=== PATIENT | female | born 1970 | race Caucasian/White ===

== ENCOUNTER 2018-06-25 11:10 | Outpatient (REF) | payer MEDICAID, SELFPAY ==
[2018-06-25 14:35] LABS: ESR 7 MM/HR (0-20)
[2018-06-26 10:35] LABS: Rheumatoid Factor <8 IU/mL (<12.5)
[2018-06-26 11:50] LABS: IgA 78 mg/dL (85-499); Interpretation SEE COMMENTS; Lyme Ab w Rflx to Lyme Confirm Negative; Tissue Transglutaminase IgA <1.2 U/mL (<4.0)
[2018-06-26 14:10] LABS: ANA Interpretation Negative (NEGAT)
== END 2018-06-25 11:30 ==
LOC: NCHCN 11:10
PROVIDERS: PCP Nurse Practitioner; Visit Provider Nurse Practitioner
DX: K58.9 Irritable bowel syndrome, unspecified (principal); M25.50 Pain in unspecified joint
CPT/HCPCS: 82784; 83516; 85652; 86038; 86431; 86618

== ENCOUNTER 2018-10-20 01:12 | Outpatient (CLI) | payer MEDICAID, SELFPAY ==
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
== END 2018-10-20 01:32 ==
PROVIDERS: PCP Nurse Practitioner; Visit Provider Orthopaedic Surgery
DX: M25.511 Pain in right shoulder (principal); M75.101 Unspecified rotator cuff tear or rupture of right shoulder, not specified as traumatic; M19.011 Primary osteoarthritis, right shoulder; S40.012D Contusion of left shoulder, subsequent encounter
CPT/HCPCS: 73221

== ENCOUNTER 2018-11-04 09:53 | Outpatient (CLI) | payer MEDICAID, SELFPAY | END 2018-11-04 10:13 | PROVIDERS: PCP Nurse Practitioner; Visit Provider Student in an Organized Health Care Education/Training Program | DX: R55 Syncope and collapse (principal); E03.9 Hypothyroidism, unspecified | CPT/HCPCS: 93005; 93010 ==

== ENCOUNTER 2019-02-04 10:46 | Outpatient (REF) | payer MEDICAID, SELFPAY ==
[2019-02-04 19:20] LABS: TSH (W/Ref FT4) 1.65 uIU/mL (0.358-3.74)
== END 2019-02-04 11:06 ==
LOC: NCHCN 10:46
PROVIDERS: PCP Nurse Practitioner; Visit Provider Nurse Practitioner
DX: E03.9 Hypothyroidism, unspecified (principal)
CPT/HCPCS: 84443

== ENCOUNTER 2019-10-01 09:00 | Outpatient (CLI) | payer MEDICAID, SELFPAY ==
--- NOTE | 2019-10-01 09:13 | DI.RAD_ITS ---
EXAM: XR LUMBAR SPINE COMPLETE CLINICAL HISTORY: LOWER BACK PAIN M54.5 TECHNIQUE: COMPARISON: No exams were available for comparison FINDINGS: Six views were obtained. Note is made of disc space narrowing at L5-S1. Otherwise intervertebral di sc spaces appear fairly well maintained. Mild hypertrophic changes seen involving the endplates and facet joints throughout the lumbar region. No evidence of spondylolysis or spondylolisthesis. Mild DJD of the SI joints noted bilaterally. No acute fracture. Incidental note is made of an IUD in the pelvic midline. IMPRESSION: Mild degenerative changes of the lumbar spine as described above. Disc space loss of height at L5-S1 consistent with disc degeneration.
== END 2019-10-01 09:20 ==
PROVIDERS: PCP Nurse Practitioner; Visit Provider Nurse Practitioner Family
DX: M54.5 Low back pain (principal); Z97.5 Presence of (intrauterine) contraceptive device; M51.37 Other intervertebral disc degeneration, lumbosacral region; M47.817 Spondylosis without myelopathy or radiculopathy, lumbosacral region
CPT/HCPCS: 72110

== ENCOUNTER 2020-02-07 01:48 | Outpatient (CLI) | payer MEDICAID, SELFPAY ==
--- NOTE | 2020-02-07 15:00 | DI.MAMMO_ITS ---
EXAM: MG MAMMO SCREENING CLINICAL HISTORY: screening TECHNIQUE: Mammograms were interpreted according to the usual protocol including computer analysis w [employer] CAD system, tomosynthesis and C-view imaging. COMPARISON: FINDINGS: The breasts are heterogeneously dense. No dominant mass or clumped microcalcification identified in either breast. Current examination is compared with previous examinations including July 2016 an d there has been no gross interval change in appearance comparison with previous studies. IMPRESSION: No specific evidence of malignancy at this time. Routine screening examinations are suggested at yea rly intervals in this age group according to the ACS ACR guidelines. BI-RADS Cat 1 - Negative: Breast Density - Category C - Heterogeneously dense:
== END 2020-02-07 02:08 ==
PROVIDERS: PCP Nurse Practitioner; Visit Provider Nurse Practitioner Women's Health
DX: Z12.31 Encounter for screening mammogram for malignant neoplasm of breast (principal)
CPT/HCPCS: 77063; 77067

== ENCOUNTER 2020-07-05 14:32 | Outpatient (REF) | payer MEDICAID, SELFPAY ==
[2020-07-05 19:37] LABS: TSH (W/Ref FT4) 2.04 uIU/mL (0.36-3.74)
== END 2020-07-05 14:52 ==
LOC: NCHCN 14:32
PROVIDERS: PCP Nurse Practitioner; Visit Provider Nurse Practitioner
DX: E03.9 Hypothyroidism, unspecified (principal)
CPT/HCPCS: 84443

== ENCOUNTER 2020-09-01 13:02 | Emergency (ER) | payer MEDICAID, SELFPAY ==
[2020-09-01 13:06] VITALS: BP 118/72; PULSE 74; RESP 16; TEMP 36.7; O2SAT 99
--- NOTE | 2020-09-01 13:57 | W.ED.GENAD ---
Discharge Plan Disposition Patient Disposition: HOME Condition: Stable Discharge Details Clinical Impression: Finger laceration Primary Care Provider: Seema Mayers ED Provider: Jeffery Larose Home Meds and New Rx's Prescriptions: Continued multivitamin [Daily Multi-Vitamin] 1 EACH tablet 1 ea PO DAILY RF: 0 levothyroxine 50 MCG tablet 50 mcg PO DAILY Qty: 90 RF: 4 Discharge Instructions Instructions: Finger Laceration (ED) Additional Instructions: Keep the initial dressing on for the next 48 hours, then change daily. [id number] Tylenol and/or Motrin as directed for discomfort. Keep the area clean and dry. Please watch for new or worsening symptoms and return to the ER for any concerns. Sutures should be removed in the next 7-10 days. Contact your primary care provider on Friday to discuss outpatient follow-up and suture removal. Discharge Data Discharge Date/Time-TO BE ENTERED AT DEPARTURE: 09/01/20 14:05 Medical Decision Making 49-year-old female, ambidextrous, presents with avulsion laceration to the left fourth finger. Neuro, vascular, tendon intact. No bony involvement. No clear indication for x-ray. Will update tetanus today as her last update was 2011. We discussed closure options, will perform digital block and repair laceration. Laceration repaired without difficulty. Patient tolerated well. A nonstick antibiotic bulky dressing was applied. Patient has no additional questions or concerns and is comfortable discharge at this time Medical Records Medical records reviewed: Yes I reviewed the patient's medical records. HPI General Mode of arrival: ambulatory. Date/Time Provider Initiated Documentation: 09/01/20 13:03. Limitations to Documentation: no limitations. Information obtained by: patient. HPI Narrative: This is a 49-year-old female, ambidextrous, who lacerated her left fourth digit just prior to arrival. She was chopping potatoes. She reports mild pain. Denies numbness, tingling, weakness. Tetanus status reviewed and was last updated in 2011. Denies any other injury. No additional concerns or complaints. Related Data Home Medications Medication Instructions Recorded Confirmed levothyroxine 50 mcg PO DAILY #90 tab 07/23/17 09/01/20 multivitamin [Daily Multi-Vitamin] 1 ea PO DAILY 07/23/17 09/01/20 Previous Rx's Medication Instructions Recorded levothyroxine 50 mcg PO DAILY #90 tab 07/23/17 Allergies Allergy/AdvReac Type Severity Reaction Status Date / Time latex AdvReac Intermediate Skin Rash Unverified 09/01/20 13:11 General Stated Complaint: Laceration AUUGST: 4 Review of Systems Constitutional Constitutional: Denies weakness Musculoskeletal Musculoskeletal: Denies arthralgias, Denies numbness and Denies tingling Integumentary/Breasts Skin/Breast: Denies erythema Neurologic Neurologic: Denies numbness, Denies tingling and Denies weakness [facility] Medical History Acquired hypothyroidism (07/23/17) Family history of melanoma (07/23/17) Surgical History Previous section Social History Smoking/Tobacco Use Status: Current every day Smoking risk assessment performed?: Yes Alcohol Intake: never Drug use: Daily Substance use type: marijuana Do you feel safe at home: Yes Do you feel safe in your relationship?: Yes History History 1 Para 1 Hx # Term Pregnancies Multiple births Hx # Pregnancies Ectopic pregnancies AB induced Hx Number of Living Children AB spontaneous Exam Const General: cooperative, healthy appearing, comfortable and no acute distress Orientation: alert and awake [facility] Head: normal to inspection, normocephalic and atraumatic Eyes General: appearance normal, both eyes and all related structures Conjunctivae: conjunctivae normal Sclera: sclerae normal Neck Neck: normal visual inspection, trachea midline and supple Resp Effort & Inspection: normal respiratory effort and able to speak in complete sentences Cardio Rate: regular rate Rhythm: regular rhythm Skin General skin exam: no rashes or lesions noted Neuro General: patient alert, patient awake, moves all extremities and no focal motor deficits Gait: normal gait Motor: muscle tone normal throughout Sensory Exam: no sensory deficits noted Extrem General: full ROM and capillary refill normal Hand/finger images: 1. There is a 2.5 cm flap laceration. Bleeding controlled. It is still attached distally. Neuro, vascular, tendon intact. Full range of motion. Normal capillary refill. No foreign body Psych Appearance: grossly normal Mental Status: mental status grossly normal Course Vital Signs Vital signs: Vital Signs Temperature 36.7 C 09/01/20 13:06 Pulse 74 12/25/20 13:06 Respiratory Rate 16 09/01/20 13:06 Blood Pressure 118/72 09/01/20 13:06 Pulse Oximetry 99 09/01/20 13:06 Temperature 36.7 C 09/01/20 13:06 Temperature Source Temporal Artery Scan 09/01/20 13:06 Pulse 74 09/01/20 13:06 Respiratory Rate 16 09/01/20 13:06 Respiratory Effort Non-Labored 09/01/20 13:31 Blood Pressure 118/72 09/01/20 13:06 Blood Pressure Position Sitting 09/01/20 13:06 Pulse Oximetry 99 09/01/20 13:06 Oxygen Delivery Method Room Air 09/01/20 13:06 Oxygen Flow Rate 0 09/01/20 13:06 Pain Level 6 09/01/20 13:06 Procedures Laceration Laceration 1: Site: hand Side (If applicable): left (Fourth finger) Size (cm): 2.5 Description: flap Depth: simple, single layer Local Anesthetic: Lidocaine 2% Amount of anesthesia used (mL): 5 Pre-repair: wound explored, irrigated extensively and deep structures intact Skin layer closed with: nylon Size (cm): 4-0 Number of sutures: 3 Technique: simple, interrupted
[2020-09-01 14:06] VITALS: BP 118/72; PULSE 74; RESP 16; TEMP 36.7; O2SAT 99
== END 2020-09-01 14:05 | disposition home or self-care (01) ==
LOC: ER 14:08
PROVIDERS: Emergency Provider Physician Assistant; PCP Nurse Practitioner
DX: S61.215A Laceration without foreign body of left ring finger without damage to nail, initial encounter (principal); W26.0XXA Contact with knife, initial encounter
CPT/HCPCS: 12001; 90471

== ENCOUNTER 2021-01-22 03:32 | Outpatient (CLI) | payer MEDICAID, SELFPAY ==
[2021-01-23 09:45] LABS: IgA 89 mg/dL (85-499); IgG 678 mg/dL (610-1,616)
[2021-01-24 14:29] LABS: Tissue Transglutaminase Ab IgA <1.2 U/mL
== END 2021-01-22 03:33 | disposition home or self-care (01) ==
PROVIDERS: PCP Nurse Practitioner; Visit Provider Internal Medicine
DX: R19.4 Change in bowel habit (principal)
CPT/HCPCS: 36415; 82784; 83516

== ENCOUNTER 2021-01-23 20:43 | Outpatient (REF) | payer MEDICAID, SELFPAY ==
[2021-01-23 12:44] LABS: C Diff PCR Negative (Negative)
[2021-01-25 17:08] LABS: Calprotectin <15.6 mcg/g
== END 2021-01-23 20:44 | disposition home or self-care (01) ==
LOC: LBN 20:43
PROVIDERS: PCP Nurse Practitioner; Visit Provider Internal Medicine
DX: R19.4 Change in bowel habit (principal)
CPT/HCPCS: 87329; 87493; 83993

== ENCOUNTER 2021-02-12 14:09 | Outpatient (REF) | payer MEDICAID, SELFPAY ==
--- NOTE | 2021-02-12 13:25 | PAPFT_PTH ---
PATIENT: Melina Avery LOC: N U#:[id number] AGE/SX: 50/F ROOM: RE02/12/[address]: Yesica Clarke NP : 1970 BED: DIS: 02/12/2021 SPEC #: [id number] RECD: 02/12/21 18:01 STATUS: MELBA SMITH #: [id number] CA: 02/12/21 13:[address]: Yesica Clarke NP DEPT: [facility] Cytology RECD BY: Indiana Storey ENTERED: 02/12/21 18:01 SP TYPE: PAPFT OTHR DR: Seema Mayers Tissues: 1 - CX/ENDOCX FOR PAP SMEARS Procedures: PAP THIN PREP/UVM Screening HPV DNA PROBE Comments: [id number]
== END 2021-02-12 14:10 | disposition home or self-care (01) ==
LOC: LBN 14:09
PROVIDERS: PCP Nurse Practitioner; Visit Provider Nurse Practitioner Women's Health
DX: Z12.4 Encounter for screening for malignant neoplasm of cervix (principal); Z11.51 Encounter for screening for human papillomavirus (HPV)
CPT/HCPCS: 88142; 87624

== ENCOUNTER 2021-02-19 02:51 | Outpatient (CLI) | payer MEDICAID, SELFPAY ==
[2021-02-19 21:42] LABS: FSH 91.9 mIU/mL (See Note)
== END 2021-02-19 02:52 | disposition home or self-care (01) ==
LOC: LBO 02:52
PROVIDERS: PCP Nurse Practitioner; Visit Provider Nurse Practitioner Women's Health
DX: N91.2 Amenorrhea, unspecified (principal)
CPT/HCPCS: 36415; 83001

== ENCOUNTER 2021-03-19 01:30 | Outpatient (CLI) | payer MEDICAID, SELFPAY ==
--- NOTE | 2021-03-19 08:01 | DI.MAMMO_ITS ---
Exam(s) MAMMO SCREENING EXAM: MAMMO SCREENING CLINICAL HISTORY: screening,Z12.39. TECHNIQUE: Bilateral full field digital CC and MLO mammographic images were obtained with 3D tomosyn thesis and utilizing computer aided detection (CAD). COMPARISON: Prior mammograms dating back to 2011, the most recent being February 2020. FINDINGS: There are no CAD designations There are no new spiculated masses nor malignant appearing microcalcification groups. There is no significant architectural distortion nor skin thickening-retraction. IMPRESSION: No radiographic evidence of malignancy. BI-RADS Category 1 - Negative Breast Density - Category B - Scattered areas of fibroglandular density Breast density Category C or D implies that the patient has dense breast tissue. Dense breast tissue can make it harder to find cancer on a mammogram. Dense breast tissue is also associated with an incr eased risk of breast cancer. This information about the result of the mammogram report was provided to the patient to raise their awareness. Use this report when you speak with the patient about their risks for breast cancer, which includes their family history. At that time, you may recommend additional screening tests (Ultrasoun d or MRI) as these tests may add significant information. A negative radiographic report should not delay biopsy if a dominant or clinically suspicious mass is present. Up to ten percent of cancers are not identified on mammography. A negative report may reinforce clinical impression. Adenosis and dense breasts may obscure an underlying neoplasm. False positive reports average 6 to 10%. Patient will receive a letter notifying them of these results.
== END 2021-03-19 01:50 ==
PROVIDERS: PCP Nurse Practitioner; Visit Provider Nurse Practitioner Women's Health
DX: Z12.31 Encounter for screening mammogram for malignant neoplasm of breast (principal); R92.8 Other abnormal and inconclusive findings on diagnostic imaging of breast
CPT/HCPCS: 77063; 77067

== ENCOUNTER 2021-10-25 17:57 | Outpatient (REF) | payer MEDICAID, SELFPAY ==
[2021-10-25 18:12] LABS: TSH (W/Ref FT4) 1.65 uIU/mL (0.36-3.74)
== END 2021-10-25 17:58 | disposition home or self-care (01) ==
LOC: NCHCN 17:57
PROVIDERS: PCP Nurse Practitioner; Visit Provider Nurse Practitioner Family
DX: E03.9 Hypothyroidism, unspecified (principal)
CPT/HCPCS: 84443

== ENCOUNTER 2022-01-31 09:09 | Outpatient (REF) | payer MEDICAID, SELFPAY ==
[2022-01-31 15:42] LABS: Anion Gap 7.9 mmol/L (3-11); BUN 13 mg/dL (7-18); CO2 29.1 mmol/L (21.0-32.0); CREATININE 0.7 mg/dL (0.55-1.02); Calcium 8.8 mg/dL (8.5-10.1); Calculated LDL 189 mg/dL (<100); Chloride 103 mmol/L (98-107); Cholesterol 297 mg/dL (<200); Glucose 84 mg/dL (74-106); HDL Cholesterol 102 mg/dL (40-60); Sodium 140 mmol/L (136-145); Triglyceride 32 mg/dL (<150)
== END 2022-01-31 09:10 | disposition home or self-care (01) ==
LOC: NCHCN 09:09
PROVIDERS: PCP Nurse Practitioner; Visit Provider Nurse Practitioner Family
DX: Z13.220 Encounter for screening for lipoid disorders (principal); Z13.228 Encounter for screening for other metabolic disorders; Z00.00 Encounter for general adult medical examination without abnormal findings
CPT/HCPCS: 80048; 80061

== ENCOUNTER 2022-05-14 22:13 | Emergency (ER) | payer MEDICAID, SELFPAY ==
[2022-05-14 22:43] VITALS: BP 118/73; PULSE 76; RESP 18; TEMP 37.1; O2SAT 97
--- NOTE | 2022-05-14 23:05 | ED.GENADUL_ITS ---
Discharge Plan Disposition Patient Disposition: HOME Condition: Stable Discharge Details Clinical Impression: Bite, snake Primary Care Provider: Seema Mayers ED Provider: Indiana Valle Home Meds and New Rx's Prescriptions: Continued multivitamin [Daily Multi-Vitamin] 1 EACH tablet 1 ea PO DAILY levothyroxine 50 MCG tablet 50 mcg PO DAILY Qty: 90 4RF Rx Instructions: 1 tab PO daily Discharge Instructions Additional Instructions: Keep wounds clean and dry Wash with soap and water daily Return for spreading redness, fever, worsening pain Discharge Data Discharge Date/Time-TO BE ENTERED AT DEPARTURE: 05/14/22 23:29 Medical Decision Making tdap utd wound cleansed dressing applied appears superficial neurovascularly intact return precautions discussed and pt expressed understanding HPI General Date/Time Provider Initiated Documentation: 05/14/22 23:00 . HPI Narrative: This 51-year-old female presents with pain and swelling to her left hand after a snakebite from a boa constrictor bite. Tetanus is reportedly up-to-date. Denies any additional complaints at this time. Related Data Home Medications Medication Instructions Recorded Confirmed levothyroxine 50 mcg tablet 50 mcg PO DAILY #90 tabs 07/23/17 05/14/22 multivitamin (Daily Multi-Vitamin 1 ea PO DAILY 07/23/17 05/14/22 tablet) Previous Rx's Medication Instructions Recorded levothyroxine 50 mcg tablet 50 mcg PO DAILY #90 tabs 07/23/17 Allergies Allergy/AdvReac Type Severity Reaction Status Date / Time latex AdvReac Intermediate Skin Rash Unverified 05/14/22 22:46 General Stated Complaint: AnimalBite AUGUST: 5 Review of Systems All systems reviewed & are unremarkable except as noted in HPI and below PFSH All Active Problems (Updated 05/14/22 @ 23:24 by JEZ Gerard) Bite, snake (Acute) Previous section (Chronic) Family history of melanoma (Acute 07/23/17) Acquired hypothyroidism (Acute 07/23/17) Medical History Acquired hypothyroidism (07/23/17) Family history of melanoma (07/23/17) Surgical History Previous section Social History Smoking/Tobacco Use Status: Former Tobacco Use Smoking risk assessment performed?: Yes Alcohol Intake: never Drug use: Daily Substance use type: marijuana Do you feel safe at home: Yes Do you feel safe in your relationship?: Yes Female Reproductive History Menstrual control method: none History History 1 Para 1 Hx # Term Pregnancies Multiple births Hx # Pregnancies Ectopic pregnancies AB induced Hx Number of Living Children AB spontaneous Exam Const General: cooperative, comfortable and no acute distress Extrem Other: Left hand with abrasion at second and third digit with overlying MCP, no obvious effusion, range of motion intact, strength and sensation intact Course Vital Signs Vital signs: Vital Signs Temperature 37.1 C 05/14/22 22:43 Pulse 76 05/14/22 22:43 Respiratory Rate 18 05/14/22 22:43 Blood Pressure 118/73 05/14/22 22:43 Pulse Oximetry 97 05/14/22 22:43 Temperature 37.1 C 05/14/22 22:43 Pulse 76 05/14/22 22:43 Respiratory Rate 18 05/14/22 22:43 Respiratory Effort Non-Labored 05/14/22 22:47 Blood Pressure 118/73 05/14/22 22:43 Pulse Oximetry 97 05/14/22 22:43 Pain Level 1 05/14/22 22:43
[2022-05-14] MEDS: Ibuprofen 600 MG TAB PO (23:28)
== END 2022-05-14 23:29 | disposition home or self-care (01) ==
PROVIDERS: Emergency Provider Physician Assistant; PCP Nurse Practitioner
DX: T63.001A Toxic effect of unspecified snake venom, accidental (unintentional), initial encounter (principal); Z87.891 Personal history of nicotine dependence; S60.411A Abrasion of left index finger, initial encounter; S60.413A Abrasion of left middle finger, initial encounter
CPT/HCPCS: 99281; 99282

== ENCOUNTER → 2022-06-20 14:12 | Outpatient (CLI) | payer MEDICAID, SELFPAY ==
--- NOTE | 2022-06-20 | DI.RAD_ITS ---
Exam(s) XR HAND RT COMPLETE EXAM: XR HAND RT COMPLETE CLINICAL HISTORY: RIGHT HAND PAIN--M79.641, PAIN OVER METACARPALS 3 4 AFTER SNAKE BIT. TECHNIQUE: 2D digital imaging was performed of the right hand. Three images were obtained. AP, late ral and oblique views were obtained. COMPARISON: No exams were available for comparison FINDINGS: BONES: No acute fracture is present. No bony destructive lesion is seen. JOINTS: No dislocation present. Moderate degenerative changes are seen in the hand. SOFT TISSUE: Normal. No radiopaque foreign bodies. IMPRESSION: No acute abnormality. DATA REPOSITORY: RADIATION DOSE DELIVERED:
== END ==
PROVIDERS: PCP Nurse Practitioner Family; Visit Provider Physician Assistant Medical
DX: M79.641 Pain in right hand (principal)
CPT/HCPCS: 73130

== ENCOUNTER 2022-09-10 13:00 | Outpatient (REF) | payer MEDICAID, SELFPAY ==
[2022-09-10 19:07] LABS: TSH (W/Ref FT4) 2.57 uIU/mL (0.36-3.74)
== END 2022-09-10 13:01 | disposition home or self-care (01) ==
LOC: NCHCN 13:00
PROVIDERS: PCP Nurse Practitioner Family; Visit Provider Nurse Practitioner Family
DX: E03.9 Hypothyroidism, unspecified (principal)
CPT/HCPCS: 84443

== ENCOUNTER 2023-01-03 07:09 | Day surgery (SDC) | payer MEDICAID, SELFPAY ==
--- NOTE | 2023-01-02 21:33 | PDOC.DSDIS_ITS ---
Date of service: 01/03/23 Time of Service: 08:37 Discharge Plan Disposition Patient Disposition: Home Condition: Good Discharge Details Reason For Visit: hemorrhoid banding Attending Provider: Crystal Hernandez Primary Care Provider: Ada Garcia Home Meds and New Rx's Prescriptions: No Action hydrocortisone 2.5 % cream 1 applic topical QID PRN (Reason: hemorrhoids) Qty: 30 3RF echinacea-nash seal 250-200 mg capsule 1 cap PO DAILY oregano oil-flaxseed oil 50-25 mg capsule 1 cap PO DAILY aloe vera extract-allantoin Liquid mucous membrane ashwagandha root extract 300 mg capsule 300 mg PO DAILY passion flower paste PO HS multivitamin [Daily Multi-Vitamin] 1 EACH tablet 1 ea PO DAILY levothyroxine 50 MCG tablet 50 mcg PO DAILY Qty: 90 4RF Rx Instructions: 1 tab PO daily Discharge Instructions Additional Instructions: INSTRUCTIONS AFTER RUBBER BAND LIGATION RUBBER BANDS: There are many methods of treating hemorrhoids. Rubber band ligation is done by application of a small rubber band over the hemorrhoid. The bands, being elastic, tighten and strangulate the hemorrhoid until it falls off. Since internal hemorrhoids usually do not have much sensation to pain, this method is easily tolerated. However, external hemorrhoids are very sensitive, and this method cannot be used for them. ?AFTER THE PROCEDURE: ?It is not uncommon to feel a dull ache for a day or two. This sensation may be noted as soon as the rubber band is applied. Occasionally, it will make you feel as if you want to have a bowel movement. For this ache or discomfort, a great majority of patients either take no medication or they take a few Tylenol. (NOTE: AVOID THE USE OF ASPIRIN, ADVIL, OR MOTRIN (IBUPROFEN), ALEVE, ARTHRITIS MEDICATIONS, OR BLOOD THINNERS FOR ONE WEEK). Taking warm Sitz baths or sitting in a bath tub of warm water for 15 minutes will also relieve this discomfort. ?DIET: You may resume your regular diet. It is important to keep your bowel movements reasonably soft. You should take a bulk laxative (bran, Metamucil, Konsyl, Citrucel etc) daily to avoid hard stools or diarrhea. ?ACTIVITY: You may resume your normal activities such as driving a car, work, and sports.? Avoid ?saddle? type activities for two weeks- horse back rising, cycling, motorcycles/all-terrain vehicles. ?PRECAUTIONS: Banded hemorrhoid will drop off in about 3-10 days. Usually you will not notice anything other than some minor bleeding. Should severe bleeding (half a cup of blood at a time or more) occur, you should contact us immediately. If pain persists past 48 hours, or if it is not controlled by pain pills, or if there is urinary difficulty please call the office. Although this treatment is safe and effective, rare instances of severe infection or bleeding can occur. The main symptoms of infection are severe pain, chills and fever, and inability to urinate. F/u in 2 wks time 01/16 at 2:45 [facility] [phone] Stand Alone Forms: Anesthesia Discharge InstMook Amaro (DSU) Activity:: see above Diet:: As Tolerated Discharge Orders Discharge Orders: Discharge Order (Routine); Ordered 01/03/23 Ordered By: Crystal Hernandez Discharge Data Discharge Date/Time-TO BE ENTERED AT DEPARTURE: 01/03/23 10:12 DS: Diagnosis Discharge Diagnosis (1) Internal hemorrhoids with other complication: Status: Acute Asessment and Plan: Pt was discharged without being seen by surgeon (2) Irritable bowel syndrome with diarrhea: Status: Acute
[2023-01-03 07:22] VITALS: BP 117/84; PULSE 74; RESP 16; TEMP 36.6; O2SAT 100
[2023-01-03 07:47] VITALS: PULSE 74; RESP 16; TEMP 36.6; O2SAT 100
--- NOTE | 2023-01-03 08:06 | ANES.PREOP_ITS ---
General Info Date of Service Date Performed: 01/03/23 Height: 5 ft 4 in Weight: 53 kg Body Mass Index (BMI): 20.0 Surgical Procedure: Operation Date: 01/03/23 08:25 Proposed Procedure Side Surgeon p Internal Hemorrhoid Banding Crystal Hernandez, DO Meds Allergies and Home Medications Allergies Allergy/AdvReac Type Severity Reaction Status Date / Time latex AdvReac Intermediate Skin Rash Unverified 01/01/23 13:57 Home Medication Medication Instructions Recorded levothyroxine 50 mcg tablet 50 mcg PO DAILY #90 tabs 07/23/17 multivitamin (Daily Multi-Vitamin 1 ea PO DAILY 07/23/17 tablet) hydrocortisone 2.5 % topical cream 1 applic topical QID PRN 09/24/22 hemorrhoids #30 grams aloe vera extract-allantoin ml mucous membrane 12/26/22 topical liquid ashwagandha root extract 300 mg 300 mg PO DAILY 12/26/22 capsule echinacea-nash seal 250 mg-200 1 cap PO DAILY 12/26/22 mg capsule oregano oil 50 mg-flaxseed oil 25 1 cap PO DAILY 12/26/22 mg capsule passion flower paste PO HS 12/26/22 Current Visit Medications: Current Medications Generic Name Dose Route Start Last Admin Trade Name Freq PRN Reason Stop Dose Admin Hyoscyamine Sulfate 0.125 mg 01/03/23 09:45 Hyoscyamine 0.125 Mg Sl/Oral/Chew SL DIRECTED PRN Ondansetron HCl 4 mg 01/03/23 21:45 Ondansetron 4 Mg/2 Ml Vial IVP Q4H PRN PRN Nausea / Vomiting PFSH Active Problems Active Problems: Problem Status Onset Code Internal hemorrhoids with other complication K64.8 Irritable bowel syndrome with diarrhea K58.0 Hand pain, right M79.641 External hemorrhoids K64.4 Syncope R55 Hypothyroid E03.9 PSVT (paroxysmal supraventricular tachycardia) I47.1 Joint pain M25.50 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 Low back pain M54.50 Screening for colon cancer Z12.11 Previous section Z98.891 Family history of melanoma 07/23/17 Z80.8 Acquired hypothyroidism 07/23/17 E03.9 Medical History Medical History Allergic rhinitis H/O seborrheic keratosis Rash Sciatica Tobacco Smoking/Tobacco Use Status: Former Tobacco Use Alcohol Alcohol Intake: never Substance Use Substance use: Occasionally Substance use type: marijuana Prental History History 1 Para 1 Hx # Term Pregnancies Multiple births Hx # Pregnancies Ectopic pregnancies AB induced Hx Number of Living Children AB spontaneous Vital Signs and Lab Results Vital Signs Most Recent Vital Signs in EMR: Most Recent Vital Signs Temp Pulse Resp BP Pulse Ox 36.6 C 74 16 117/84 100 01/03/23 07:47 01/03/23 07:47 01/03/23 07:47 01/03/23 07:22 01/03/23 07:47 Lab Results Blood Type / Crossmatch: No Data to Display Complete Blood Count: No Data to Display Complete Metabolic Panel: No Data to Display Liver Function Panel: 2 No Data to Display Coagulation Panel: No Data to Display Cardiac Panel: No Data to Display Arterial Blood Gas: No Data to Display Venous Blood Gas: No Data to Display Pancreas Panel: No Data to Display Thyroid Panel: No Data to Display Infectious Disease: No Data to Display Blood Cultures: No Data to Display Toxicology Panel: No Data to Display Panel: No Data to Display Imaging and Studies Imaging and Studies Study information below may be from another EMR and interpreted by another provider. Please see original notes in EMR for more complete details. Echocardiogram Summary: Date of study: 01/21/2018 Transthoracic Echocardiography M-mode, complete 2D, complete spectral Doppler, and color Doppler *STUDY CONCLUSIONS* Summary: 1. Left ventricle: The cavity size was normal. Wall thickness was normal. Systolic function was normal. The estimated ejection fraction was 60-65%. Wall motion was normal; there were no regional wall motion abnormalities. 2. Right ventricle: The cavity size was normal. Wall thickness was normal. Systolic function was normal. Anesthesia Assessment and Plan Anesthesia History Personal History: No History of Anesthesia Complications Family History: No Family History of Anesthesia Complications Exercise Tolerance Exercise Tolerance: Metabolic Equivalents>4 Pertinent Negatives Pertinent Negatives: No Symptoms of GERD, No Major Cardiovascular Symptoms or Complaints and No Major Pulmonary Symptoms or Complaints Cardiac & Pulmonary Exam Cardiac Exam: Normal S1/S2 Heart Sounds Pulmonary Exam: Clear Bilateral Breath Sounds Implantable Cardiac Device Does patient have a Pacemaker or an ICD?: No Airway Exam Known Difficult Airway: No Mallampati Class: 1 Mouth Opening: Normal (> 3cm) Thyromental Distance: Greater than 3 cm Neck Range of Motion: Full ROM Neck Circumference: Normal Teeth Condition: Normal Dentition ASA Classification ASA Score: ASA 2 Emergency Case?: No NPO Status NPO Status: NPO Clears >2 hours, Solids >8 hours Status Status: Negative HCG Anesthesia Plan Resuscitation Status: Full Code Anesthesia Technique: General Anesthesia Airway Planned: Natural Airway Monitors Used: Standard Monitors
[2023-01-03] MEDS: Lactated Ringers 1,000 ML 80 ML IV (08:26)
--- NOTE | 2023-01-03 08:44 | W.PM.OP ---
Date of service: 01/03/23 Time of Service: 08:44 Operative Note Operative Note DATE OF PROCEDURE: 01/03/23 PRE-OP DIAGNOSIS: Internal hemorrhoids x2 complexes POST-OP DIAGNOSIS: same PROCEDURE: Hemorrhoid banding SURGEON: Crystal Hernandez ANESTHESIA TYPE: General:No Airway Refer to Anesthesia Record ESTIMATED BLOOD LOSS: 1 PATHOLOGY: none sent COMPLICATIONS: None Patient was transported to: same day Patient's condition: stable Procedure Description: After informed consent was obtained the patient was taken to the procedure room and placed in a left decubitous position. Risks include but not limited to: Bleeding, infection, pain, abscesses or fistulas, damage to sphincters, recurrence, and complications from anesthesia. Monitors were applied and a time out was done. The patients name, date of , procedure, allergies to medications and metal in their body was reviewed. The patient was then sedated. Once sedated and comfortable a rectal exam was done. External exam was normal. Internal exam revealed a normal sphincter tone and no palpable masses. Bands are placed on the right anterior and posterior columns internally. left lateral is ant external hemorrhoid only. The patient tolerated the procedure well and there were no immediate complications. The patient was transferred to the recovery room in stable condition. She is doing a Cologuard for colon cancer screening as she did not want to do a colonoscopy. She will follow-up in the office in 2 weeks
[2023-01-03 08:50] VITALS: BP 83/53; PULSE 64; RESP 16; TEMP 36.6; O2SAT 100
[2023-01-03 08:55] VITALS: BP 102/64; PULSE 67; RESP 16; TEMP 36.7; O2SAT 100
--- NOTE | 2023-01-03 09:08 | W.ANESPOSTOP ---
Postoperative Evaluation Date, Time and Location Date Performed: 01/03/23 Time Performed: 08:59 Patient Location: Day Surgery Unit Vital Signs Most Recent Imported Vital Signs: Most Recent Vital Signs Temp Pulse Resp BP Pulse Ox 36.7 C 67 16 102/64 100 01/03/23 08:55 01/03/23 08:55 01/03/23 08:55 01/03/23 08:55 01/03/23 08:55 Pain Score Most Recent Pain Score: Most Recent Pain Score Pain Level 0 01/03/23 07:47 Assessment Mental Status: Awake (Alert & Oriented to Patient Baseline) Airway and Respiratory Function: Patent airway with normal (patient baseline) respiratory exam Cardiovascular Function: Hemodynamically Stable Hydration Status: Adequately Hydrated Nausea & Vomiting: No Nausea or Vomiting Pain: Pt. Denies Any Pain Peripheral Nerve Block: Patient did not receive a nerve block
[2023-01-03] MEDS: Ketorolac 15 MG/ML VIAL IVP (09:24)
[2023-01-03 09:29] VITALS: BP 126/84; PULSE 64; RESP 16; TEMP 37; O2SAT 100
[2023-01-03] MEDS: Acetaminophen 500 MG TAB 1000 MG PO (09:36)
[2023-01-03] MEDS: Methocarbamol 500 MG TAB 1000 MG PO (09:39)
== END 2023-01-03 10:12 | disposition home or self-care (01) ==
PROVIDERS: PCP Nurse Practitioner Family; Visit Provider Surgery
PROC: (CPT 46221; principal; 2023-01-03 08:15)
DX: K64.8 Other hemorrhoids (principal)
CPT/HCPCS: 46221; J1885; J2704

== ENCOUNTER 2023-09-09 14:42 | Outpatient (REF) | payer MEDICAID, SELFPAY ==
[2023-09-09 16:28] LABS: Anion Gap 6.8 mmol/L (3-11); BUN 14 mg/dL (7-18); CO2 31.2 mmol/L (21.0-32.0); CREATININE 0.8 mg/dL (0.55-1.02); Calcium 9.8 mg/dL (8.5-10.1); Calculated LDL 161 mg/dL (<100); Chloride 103 mmol/L (98-107); Cholesterol 273 mg/dL (<200); Estimated GFR 89.15 (mL/min/1.73m2); FREE T4 1.27 ng/dL (0.76-1.46); Glucose 96 mg/dL (74-106); HDL Cholesterol 100 mg/dL (40-60); Sodium 141 mmol/L (136-145); Triglyceride 62 mg/dL (<150)
== END 2023-09-09 14:43 | disposition home or self-care (01) ==
LOC: NCHCN 14:42
PROVIDERS: PCP Nurse Practitioner Family; Visit Provider Nurse Practitioner Family
DX: E03.9 Hypothyroidism, unspecified (principal); R79.89 Other specified abnormal findings of blood chemistry; Z13.220 Encounter for screening for lipoid disorders
CPT/HCPCS: 80048; 80061; 84439; 84443

== ENCOUNTER → 2023-09-15 02:06 | Outpatient (CLI) | payer MEDICAID, SELFPAY ==
--- NOTE | 2023-09-15 | DI.MAMMO_ITS ---
Exam(s) MAMMO SCREENING EXAM: MAMMO SCREENING CLINICAL HISTORY: SCREENING FOR BREAST CANCER Z12.39. TECHNIQUE: Bilateral full field digital CC and MLO mammographic images were obtained with 3D tomosyn thesis and utilizing computer aided detection (CAD). COMPARISON: Prior mammograms were reviewed. FINDINGS: There has been no significant change in the appearance and distribution of the fibroglandular tissue. There are no CAD designations. There are no new spiculated masses nor malignant appearing microcalcification groups. There is no significant architectural distortion nor skin thickening-retraction. IMPRESSION: No radiographic evidence of malignancy. BI-RADS Category 1 - Negative Breast Density - Category B - Scattered areas of fibroglandular density Breast density Category C or D implies that the patient has dense breast tissue. Dense breast tissue can make it harder to find cancer on a mammogram. Dense breast tissue is also associated with an incr eased risk of breast cancer. This information about the result of the mammogram report was provided to the patient to raise their awareness. Use this report when you speak with the patient about their risks for breast cancer, which includes their family history. At that time, you may recommend additional screening tests (Ultrasoun d or MRI) as these tests may add significant information. A negative radiographic report should not delay biopsy if a dominant or clinically suspicious mass is present. Up to ten percent of cancers are not identified on mammography. A negative report may reinforce clinical impression. Adenosis and dense breasts may obscure an underlying neoplasm. False positive reports average 6 to 10%. Patient will receive a letter notifying them of these results.
== END ==
PROVIDERS: PCP Nurse Practitioner Family; Visit Provider Nurse Practitioner Family
DX: Z12.31 Encounter for screening mammogram for malignant neoplasm of breast (principal)
CPT/HCPCS: 77063; 77067

== ENCOUNTER 2024-11-04 15:38 | Outpatient (REF) | payer MEDICAID, SELFPAY ==
[2024-11-04 19:36] LABS: Absolute Basophil Count 0.04 10^3/uL (0.0-0.2); Absolute Eosinophil Count 0.11 10^3/uL (0.0-0.7); Absolute Lymphocyte Count 2.04 10^3/uL (1.2-3.4); Absolute Neutrophil Count 3.35 10^3/uL (1.2-6.7); Basophils % 0.7 %; Eosinophils % 1.9 %; HCT 40.2 % (36.0-46.0); HGB 13.2 g/dL (11.2-15.7); Lymphocytes % 34.3 %; MCHC 32.8 % (32.0-36.0); MCV 91 fL (80-95); MPV 9.5 fL (8.0-11.0); Monocytes % 6.7 %; Neutrophils % 56.4 %; Platelet Count 191 10^3/uL (130-400); RDW 12.8 % (11.7-14.6); WBC 5.94 10^3/uL (4.4-10.8)
[2024-11-04 20:27] LABS: ALT 26 U/L (14-59); AST 12 U/L (15-37); Albumin 4.1 g/dL (3.4-5.0); Alkaline Phosphatase 72 U/L (46-116); Anion Gap 8.2 mmol/L (3-11); BUN 12 mg/dL (7-18); Bilirubin, Total 0.19 mg/dL (0.2-1.0); CO2 28.8 mmol/L (21.0-32.0); CREATININE 0.6 mg/dL (0.55-1.02); Calcium 9.5 mg/dL (8.5-10.1); Calculated LDL 141 mg/dL (<100); Chloride 105 mmol/L (98-107); Cholesterol 252 mg/dL (<200); Estimated GFR 107.93 (mL/min/1.73m2); Glucose 87 mg/dL (74-106); HDL Cholesterol 101 mg/dL (>or=50); Potassium 3.7 mmol/L (3.5-5.1); Sodium 142 mmol/L (136-145); TSH 2.95 uIU/mL (0.36-3.74); Total Protein 6.8 g/dL (6.4-8.2); Triglyceride 51 mg/dL (<150)
[2024-11-05 22:42] LABS: T4, Free 1.5 ng/dL (0.8-2.2)
== END 2024-11-04 15:39 | disposition home or self-care (01) ==
LOC: NCHCN 15:38
PROVIDERS: Visit Provider Nurse Practitioner Family
DX: E03.9 Hypothyroidism, unspecified (principal); G43.909 Migraine, unspecified, not intractable, without status migrainosus; I47.10 Supraventricular tachycardia, unspecified; E78.5 Hyperlipidemia, unspecified
CPT/HCPCS: 80053; 80061; 84439; 84443; 85025

== ENCOUNTER 2024-12-01 00:50 | Outpatient (CLI) | payer MEDICAID, SELFPAY ==
--- NOTE | 2024-12-01 | DI.MAMMO_ITS ---
Exam(s) MAMMO SCREENING EXAM: MAMMO SCREENING CLINICAL HISTORY: Z12.31 Screening TECHNIQUE: Mammograms were interpreted according to the usual protocol including computer analysis w [employer] CAD system, tomosynthesis and C-view imaging. COMPARISON: 2015 through 2023 FINDINGS: The breasts are composed of scattered fibroglandular densities, Breast Density category B. No suspicious masses or suspicious microcalcifications are seen. No skin thickening or abnormal axillary lymph nodes are seen. There has been no significant change from prior exams. IMPRESSION: BI-RADS Category 1, Negative mammogram Yearly screening mammography is recommended. Breast Density - Category B, scattered fibroglandular densities. A negative radiographic report should not delay biopsy if a dominant or clinically suspicious mass is present. Up to ten percent of cancers are not identified on mammography. A negative report may reinforce clinical impression. Adenosis and dense breasts may obscure an underlying neoplasm. False positive reports average 6 to 10%. Patient will receive a letter notifying them of these results.
== END 2024-12-01 01:10 ==
PROVIDERS: PCP Nurse Practitioner Family; Visit Provider Nurse Practitioner Family
DX: Z12.31 Encounter for screening mammogram for malignant neoplasm of breast (principal); R92.323 Mammographic fibroglandular density, bilateral breasts
CPT/HCPCS: 77063; 77067